=== PATIENT | female | born 1985 | race American Indian/Alaskan Native ===

== ENCOUNTER 2021-02-13 02:08 | Emergency (ER) | payer SELFPAY ==
--- NOTE | 2021-02-13 03:07 | XRay Report ---
CHEST 1 VIEW 02/13/2021 2:49 AM INDICATION / CLINICAL INFORMATION: FEVER. COMPARISON: None available. FINDINGS: SUPPORT DEVICES: None. HEART / MEDIASTINUM: No significant abnormality. LUNGS / PLEURA: No significant pulmonary or pleural abnormality. Lung volumes mildly diminished. No p neumothorax. ADDITIONAL FINDINGS: No significant additional findings. IMPRESSION: No acute abnormality. Signer Name: Moses Kraft MD Signed: 02/13/2021 3:03 AM Workstation Name: [id number]
[2021-02-13] MEDS: FAMOTIDINE 20 MG/2 ML INJ IV ONE (03:08)
[2021-02-13] MEDS: MORPHINE 4 MG/1 ML INJ IV ONE (03:08)
[2021-02-13] MEDS: ONDANSETRON 4 MG/2 ML INJ IV ONE (03:08)
[2021-02-13] MEDS: SODIUM CHLORIDE 0.9% 1000 ML 1,000 ML IV ONE ×2 (03:08→06:25)
[2021-02-13 03:31] LABS: Hemoglobin 7.5 gm/dl (10.1-14.3); Mean Corpuscular HGB Conc 31 % (30-34); Mean Corpuscular Volume 60 fl (79-97); Platelet Count 232 K/mm3 (140-440); Red Blood Count 3.98 M/mm3 (3.65-5.03); Red Cell Distribution Width 20.6 % (13.2-15.2)
[2021-02-13 03:39] LABS: Albumin 3.7 g/dL (3.9-5); Calcium 8.7 mg/dL (8.4-10.2)
[2021-02-13 04:04] LABS: Band Neutrophils # (Manual) 0.2 K/mm3; Total Cells Counted 100
[2021-02-13 04:05] LABS: Anisocytosis 1+; Hypochromasia 2+; Platelet Estimate Consistent w Auto; Poikilocytosis 1+; Target Cells 1+
--- NOTE | 2021-02-13 04:46 | Cat Scan Report ---
CT ABDOMEN AND PELVIS WITH CONTRAST INDICATION / CLINICAL INFORMATION: Right flank pain that radiates to her back.. TECHNIQUE: Axial CT images were obtained through the abdomen and pelvis after Omnipaque 300, 100 cc I V contrast. All CT scans at this location are performed using CT dose reduction for ALARA by means o f automated exposure control. COMPARISON: None available. FINDINGS: LOWER CHEST: No significant abnormality. LIVER: No significant abnormality. GALLBLADDER: No significant abnormality. BILE DUCTS: No significant abnormality. PANCREAS: No significant abnormality. SPLEEN: No significant abnormality. ADRENALS: No significant abnormality. RIGHT KIDNEY / URETER: 2 stones including a 7.5 mm nonobstructing stone at the right renal pelvis. Mi ld distention of the right renal collecting system extending to the UPJ. Delayed nephrogram is presen t without filling of the collecting system on delayed images. LEFT KIDNEY / URETER: No significant abnormality. STOMACH / SMALL BOWEL: No significant abnormality. COLON: No significant abnormality. APPENDIX: No significant abnormality. PERITONEUM: Mild free fluid in the pelvis. No free air. No fluid collection. LYMPH NODES: No significant adenopathy. VASCULAR STRUCTURES: No significant abnormality. URINARY BLADDER: No significant abnormality. REPRODUCTIVE ORGANS: No significant abnormality. ADDITIONAL FINDINGS: None. SKELETAL SYSTEM: No significant abnormality. IMPRESSION: 1. Obstruction right kidney at the UPJ without obvious cause. The renal pelvic stone is likely interm ittently obstructing and has resulted in edema. 2. 2 left-sided renal stones. 3. Mild pelvic free fluid. Signer Name: Moses Kraft MD Signed: 02/13/2021 4:42 AM Workstation Name: [id number]
--- NOTE | 2021-02-13 05:37 | Emergency Department Report ---
ED Abdominal Pain HPI - General Chief Complaint: Back Pain/Injury Stated Complaint: ABD PAIN Source: patient Mode of arrival: Ambulatory Limitations: No Limitations - History of Present Illness Initial Comments: Patient is a 35-year-old -N[place]alese female with a history of kidney stones who presents to the ED with complaint of acute onset persistent nausea and vomiting, right flank pain that radiates to the right mid posterior thoracic area, generalized fatigue, fever and chills for the last 1 week. Patient states that she has not been able to keep anything down in the last 5 days because of persistent right flank pain and nausea and vomiting. Patient denies dizziness, syncope, cough, chest pain, shortness of breath, traumatic injury, hematuria, dysuria, urinary frequency and urgency, headache, sore throat, nasal and sinus congestion or diarrhea. MD Complaint: abdominal pain (right flank pain), flank pain (right flank pain), other (fever, chills, nausea and vomiting) -: Sudden, week(s) (1) Location: R flank Radiation: back (right-sided mid posterior thoracic pain) Migration to: no migration Severity: severe Severity scale (0 -10): 7 Quality: cramping, stabbing, sharp Consistency: constant Improves With: nothing Worsens With: movement Associated Symptoms: denies other symptoms, nausea, vomiting, anorexia. denies: diarrhea, fever, chills, constipation, dysuria, hematemesis, hematochezia, melena, hematuria, syncope - Related Data LMP Date: 02/12/21 Previous Rx's Medication Instructions Recorded Last Taken Type Ketorolac [Toradol] 10 mg PO Q8H PRN #20 tablet 02/13/21 Unknown Rx Ondansetron [Zofran Odt] 4 mg PO Q6HR PRN #20 tab.rapdis 02/13/21 Unknown Rx Sulfamethoxazole/Trimethoprim 1 each PO Q12H #20 tablet 02/13/21 Unknown Rx [Bactrim DS TAB] Tamsulosin [Flomax] 0.4 mg PO QDAY #10 cap 02/13/21 Unknown Rx oxyCODONE /ACETAMINOPHEN [Percocet 1 tab PO Q6HR PRN #12 tablet 02/13/21 Unknown Rx 5/325] Allergies Allergy/AdvReac Type Severity Reaction Status Date / Time No Known Allergies Allergy Verified 02/13/21 02:21 ED Review of Systems ROS: Stated complaint: ABD PAIN Other details as noted in HPI Constitutional: chills, fever, malaise, weakness Eyes: denies: eye pain, eye discharge, vision change ENT: denies: ear pain, throat pain Respiratory: denies: cough, shortness of breath, wheezing Cardiovascular: denies: chest pain, palpitations Endocrine: no symptoms reported Gastrointestinal: abdominal pain (Right flank pain), nausea, vomiting. denies: diarrhea Genitourinary: denies: urgency, dysuria, frequency, hematuria, discharge, abnormal menses, dyspareunia Musculoskeletal: back pain (Right-sided mid posterior thoracic pain). denies: j oint swelling, arthralgia Skin: denies: rash, lesions Neurological: denies: headache, weakness, paresthesias Psychiatric: denies: anxiety, depression Hematological/Lymphatic: denies: easy bleeding, easy bruising ED Past Medical Hx - Past Medical History Previous Medical History?: Yes Hx Kidney Stones: Yes - Medications Home Medications: Home Medications Medication Instructions Recorded Confirmed Last Taken Type Ketorolac [Toradol] 10 mg PO Q8H PRN #20 tablet 02/13/21 Unknown Rx Ondansetron [Zofran Odt] 4 mg PO Q6HR PRN #20 tab.rapdis 02/13/21 Unknown Rx Sulfamethoxazole/Trimethoprim 1 each PO Q12H #20 tablet 02/13/21 Unknown Rx [Bactrim DS TAB] Tamsulosin [Flomax] 0.4 mg PO QDAY #10 cap 02/13/21 Unknown Rx oxyCODONE /ACETAMINOPHEN [Percocet 1 tab PO Q6HR PRN #12 tablet 02/13/21 Unknown Rx 5/325] ED Physical Exam - General Limitations: No Limitations General appearance: alert, in no apparent distress, anxious - Head Head exam: Present: atraumatic, normocephalic, normal inspection - Eye Eye exam: Present: normal appearance, PERRL, EOMI Pupils: Present: normal accommodation - ENT ENT exam: Present: normal exam, normal orophraynx, mucous membranes moist, TM's normal bilaterally, normal external ear exam - Neck Neck exam: Present: normal inspection, full ROM - Respiratory Respiratory exam: Present: normal lung sounds bilaterally. Absent: respiratory distress, wheezes, rales, chest wall tenderness, accessory muscle use, decreased breath sounds - Cardiovascular Cardiovascular Exam: Present: normal rhythm, tachycardia, normal heart sounds. Absent: systolic murmur, diastolic murmur, rubs, gallop - GI/Abdominal GI/Abdominal exam: Present: soft, tenderness (Palpable right flank tenderness), normal bowel sounds. Absent: guarding, rebound, hyperactive bowel sounds, hypoactive bowel sounds, organomegaly - Extremities Exam Extremities exam: Present: normal inspection, full ROM, normal capillary refill - Back Exam Back exam: Present: normal inspection, full ROM, tenderness (Palpable right sided mid posterior thoracic tenderness, and right CVA tenderness), CVA tenderness (R), muscle spasm, paraspinal tenderness. Absent: CVA tenderness (L) - Neurological Exam Neurological exam: Present: alert, oriented X3, CN II-XII intact, normal gait, reflexes normal - Psychiatric Psychiatric exam: Present: normal affect, normal mood, anxious - Skin Skin exam: Present: warm, dry, intact, normal color. Absent: rash ED Course Vital Signs 02/13/21 02/13/21 02:20 02:21 Temperature 102.9 F H Pulse Rate 107 H Respiratory 19 Rate Blood Pressure 97/43 [Right] O2 Sat by Pulse 98 Oximetry ED Medical Decision Making - Lab Data Result diagrams: 02/13/21 02:58 02/13/21 02:58 - Radiology Data Radiology results: report reviewed, [place] [address] Cat Scan Report Signed Patient: THONG SOOD MR#: [id number] : 1985 Acct:[id number] Age/Sex: 35 / F ADM Date: 02/13/21 Loc: ED Attending Dr: Ordering Physician: SUNDEEP BARBA Date of Service: 02/13/21 Procedure(s): CT abdomen pelvis w con Accession Number(s): [id number] cc: SUNDEEP BARBA CT ABDOMEN AND PELVIS WITH CONTRAST INDICATION / CLINICAL INFORMATION: Right flank pain that radiates to her back.. TECHNIQUE: Axial CT images were obtained through the abdomen and pelvis after Omnipaque 300, [address] scans at this location are performed using CT dose reduction for ALARA by means of automated exposure control. COMPARISON: None available. FINDINGS: LOWER CHEST: No significant abnormality. LIVER: No significant abnormality. GALLBLADDER: No significant abnormality. BILE DUCTS: No significant abnormality. PANCREAS: No significant abnormality. SPLEEN: No significant abnormality. ADRENALS: No significant abnormality. RIGHT KIDNEY / URETER: 2 stones including a 7.5 mm nonobstructing stone at the right renal pelvis. Mild distention of the right renal collecting system extending to the UPJ. Delayed nephrogram is present without filling of the collecting system on delayed images. LEFT KIDNEY / URETER: No significant abnormality. STOMACH / SMALL BOWEL: No significant abnormality. COLON: No significant abnormality. APPENDIX: No significant abnormality. PERITONEUM: Mild free fluid in the pelvis. No free air. No fluid collection. LYMPH NODES: No significant adenopathy. VASCULAR STRUCTURES: No significant abnormality. URINARY BLADDER: No significant abnormality. REPRODUCTIVE ORGANS: No significant abnormality. ADDITIONAL FINDINGS: None. SKELETAL SYSTEM: No significant abnormality. IMPRESSION: 1. Obstruction right kidney at the UPJ without obvious cause. The renal pelvic stone is likely intermittently obstructing and has resulted in edema. 2. 2 left-sided renal stones. 3. Mild pelvic free fluid. Signer Name: Moses Kraft MD Signed: 02/13/2021 4:42 AM Workstation Name: [id number] Transcribed By: ES Dictated By: Moses Kraft MD Electronically Authenticated By: Moses Kraft MD Signed Date/Time: 02/13/21441 DD/ 6 TD/TT: - Medical Decision Making This is a 35-year-old -N[place]e female with a history of kidney stones who presents to the ED with complaint of acute onset persistent nausea and vomiting, right flank pain that radiates to the right mid posterior thoracic area, generalized fatigue, fever and chills for the last 1 week. Patient states that she has not been able to keep anything down in the last 5 days because of persistent right flank pain and nausea and vomiting. In the ED, patient is alert and oriented x3 and is not in any distress. Patient is however tachycardic and febrile in triage and is slightly hypotensive but with oxygen saturation of 98% in room air. Patient was treated in the ED for fever, also given normal saline 2 L IV bolus x1, and treated with antiemetics. Lab test results were reviewed and showed acute leukocytosis of 12,100, H&H of 7.5 and 24 with MCV of 60, acute hyponatremia 130 mmol/L and acute hypochloremia of 94 mmol/L and mild hypokalemia of 3.5 mmol/L. The creatinine level was 1.7 and initial lactic acid was 2.40. Patient also received Rocephin 1 g IV x1 in the ED. Abdomen pelvis CT scan with contrast showed obstruction right kidney at the UPJ without obvious cause. The renal pelvic stone is likely intermittently obstructing and has resulted in edema. It also showed 2 left-sided renal stones. On reevaluation, patient's pain is well controlled medications. The vital signs were rechecked and tachycardia and fever resolved. Patient case was discussed with the ED attending physician Dr. Juan Luis Pickett who agreed with the plan of care to discharge the patient home on pain medications and antibiotics, and patient was given a referral to the urologist Dr. Sandoval for follow-up in the next 2 to 3 days. Patient was advised to contact fasting this morning, February to schedule a follow-up appointment. Patient was advised return to the ED immediately if symptoms get worse. - Differential Diagnosis UTI; kidney stone; pyelonephritis; ovarian cyst; muscle spasm Critical care attestation.: If time is entered above; I have spent that time in minutes in the direct care of this critically ill patient, excluding procedure time. ED Disposition Clinical Impression: Calculus of both kidneys, Acute urinary tract infection, Fever and chills, Nausea and vomiting in adult, Dehydration with hyponatremia, Acute abdominal pain in right flank Disposition: 01 HOME / SELF CARE / HOMELESS Is pt being admited?: No Does the pt Need Aspirin: No Condition: Stable Instructions: Kidney Stones, [id number], Dehydration, Adult, [id number], Renal Colic, [id number], Nausea and Vomiting, Adult, [id number]-rr-Iyso, Flank Pain, Adult, [id number], Urinary Tract Infection, Adult, [id number], Fever, Adult, [id number] Additional Instructions: All lab test results were reviewed and are all nonactionable except for leukocytosis, hyponatremia and dehydration and UTI. Abdomen pelvis CT scan with contrast showed bilateral kidney stones. Therefore take medications with food, drink plenty of fluids, and follow-up with a urologist for further evaluation in 2 [address] Sandoval's office first thing this morning February to schedule a follow-up appointment. Return to the ED immediately if symptoms get worse. Prescriptions: Sulfamethoxazole/Trimethoprim [Bactrim DS TAB] 1 each PO Q12H #20 tablet Tamsulosin [Flomax] 0.4 mg PO QDAY #10 cap oxyCODONE /ACETAMINOPHEN [Percocet 5/325] 1 tab PO Q6HR PRN #12 tablet PRN Reason: Pain Ketorolac [Toradol] 10 mg PO Q8H PRN #20 tablet PRN Reason: Pain Ondansetron [Zofran Odt] 4 mg PO Q6HR PRN #20 tab.rapdis PRN Reason: Nausea And Vomiting Referrals: ALLIE SANDOVAL MD [Staff Physician] - 3-5 Days Forms: Work/School Release Form(ED) Time of Disposition: 05:44 Print Language: PERSIAN
[2021-02-13] MEDS: TAMSULOSIN 0.4 MG CAP PO ONE (06:25)
[2021-02-13] MEDS: cefTRIAXone/NS 1 GM/50 ML 1 GM/50 ML BAG IV ONE (06:25)
[2021-02-13] MEDS: KETOROLAC 30 MG/1 ML INJ IV ONE (06:25)
[2021-02-13 06:56] LABS: Bilirubin,Urine NEG (Negative); Blood,Urine LG (Negative); Color,Urine Amber (Yellow); Urobilinogen,Urine < 2.0 mg/dL (<2.0)
[2021-02-13 07:01] LABS: WBC,Urine > 182.0 /HPF (0.0-6.0)
[2021-02-13 08:07] VITALS: BP 101/65
== END 2021-02-13 08:00 | disposition home or self-care (01) ==
LOC: ED 02:08
DX: N39.0 Urinary tract infection, site not specified (principal); R50.9 Fever, unspecified; R11.2 Nausea with vomiting, unspecified; E86.0 Dehydration; R10.9 Unspecified abdominal pain; N20.0 Calculus of kidney; E87.1 Hypo-osmolality and hyponatremia; Z79.899 Other long term (current) drug therapy
CPT/HCPCS: 36415; 71045; 74177; 80053; 81001; 82140; 83690; 84703; 85007; 85025; 96361; 96365; 96375; 99284; J0696; J1885; J2270; J2405; J7030; Q9967